=== PATIENT | male | born 2000 ===

== ENCOUNTER 2022-01-24 15:45 | Emergency (ER) ==
[~2022-01-24] VITALS: Ht 172.7 cm; Wt 81.8 kg
== END 2022-01-24 19:27 | disposition left against medical advice (07) ==
LOC: M ED 15:45
DX: Z53.21 Procedure and treatment not carried out due to patient leaving prior to being seen by health care provider (principal)

== ENCOUNTER 2024-05-09 00:16 | Emergency (ER) | payer SELFPAY ==
[~2024-05-09] VITALS: Ht 177.8 cm; Wt 88.5 kg
[2024-05-09 00:17] VITALS: BP 129/75; TEMP 99; O2SAT 99
== END 2024-05-09 00:20 | disposition left against medical advice (07) ==
LOC: M ED 00:16
DX: Z53.21 Procedure and treatment not carried out due to patient leaving prior to being seen by health care provider (principal)